=== PATIENT | female | born 2000 | race Caucasian/White ===

== ENCOUNTER 2020-10-03 14:56 | Emergency (ER) | payer OTHER ==
[~2020-10-03] VITALS: Ht 152.4 cm; Wt 67.2 kg
[2020-10-03 15:45] VITALS: BP 123/72
--- NOTE | 2020-10-03 15:49 | PHYS DOC ---
Past History Past Medical History: No Pertinent History Past Surgical History: No Surgical History Smoking: Non-smoker, Second-hand Alcohol Use: None Drug Use: None Adult General HPI HPI Patient is a 20-year-old female who presents with a chief complaint of headache, body aches and sore throat for day. States she was at the fair last [place] and was feeling well but nobody there was wearing a mask including her and she woke up this morning with her symptoms. Denies any recent travel, traumas, fevers, chest pain, shortness of breath, abdominal pain, nausea, vomiting, dysuria, hematuria or blood in stool. States she like to be tested for Covid and get a work note. Review of Systems Review of Systems Review of systems otherwise unremarkable except noted in HPI Allergies Allergies Allergies Coded Allergies Type Severity Reaction Last Updated Verified No Known Drug Allergies 03/17/13 No Physical Exam Physical Exam Constitutional: Well developed, well nourished, no acute distress, non-toxic appearance. [] HENT: Normocephalic, atraumatic, Eyes: conjunctiva normal, no discharge. [] Neck: Normal range of motion, no tenderness, supple, no stridor. [] Cardiovascular:Heart rate regular rhythm, no murmur [] Lungs & Thorax: Bilateral breath sounds clear to auscultation [] Abdomen: soft, no tenderness, no masses, no pulsatile masses. [] Skin: Warm, dry, no erythema, no rash. [] Extremities: No tenderness, no cyanosis, no clubbing, ROM intact, no edema. [] Neurologic: Alert and oriented X 3, no focal deficits noted. [] Psychologic: Affect normal, judgement normal, mood normal. [] EKG EKG [] Radiology/Procedures Radiology/Procedures [] Heart Score C/O Chest Pain: No Risk Factors: Risk Factors: DM, Current or recent (<one month) smoker, HTN, HLP, family history of CAD, obesity. Risk Scores: Risk Factors: DM, Current or recent (<one month) smoker, HTN, HLP, family history of CAD, obesity. Course & Med Decision Making Course & Med Decision Making Patient is a 20-year-old female who presents with fatigue, headache and sore throat for day Vital signs not concerning. Physical exam noted above. Given Tylenol, ibuprofen and Benadryl as well as cough medicine. Given work note. Covid swab pending. Discussed Covid precautions and quarantine for home and given education. Advised to follow-up in the morning with her primary care physician. Gave return precautions to the ED. Patient grateful, verbalized understanding agree with plan of discharge. Tiffany Disclaimer Tiffany Disclaimer This electronic medical record was generated, in whole or in part, using a voice recognition dictation system. Departure Departure: Impression: Primary Impression: Viral syndrome Disposition: HOME / SELF CARE / HOMELESS Condition: GOOD Referrals: KHARI AMBROSE (PCP) Patient Instructions: Viral Syndrome Additional Instructions: You have been tested for or diagnosed with COVID-19. It is an infection caused by a new type of coronavirus. COVID-19 will cause cold-like or mild flu symptoms in most. It can cause more severe symptoms like problems breathing in some. There is no treatment for COVID-19. The body will clear the infection over time. Self-care will help to ease discomfort. Steps to Take: Self-Care Rest as needed. Healthy habits may help you feel better. Steps include: Choose healthy foods including fruits and vegetables. Drink water throughout the day. Get plenty of sleep each night. If you smoke, try to quit. It may ease breathing. Avoid alcohol. Keep Others Healthy The virus can spread to others. Droplets are released every time you sneeze or cough. The droplets can get into the mouth, nose, or eyes of people near you and lead to infection. To lower the chances of spreading COVID-19 to others: Stay at home until your doctor has said it is safe to leave. If you tested positive this will mean staying isolated until both of the following are true: At least 7 days have passed since the start of illness. You are free of fever for at least 72 hours without the use of medicine. During this time: - Avoid public areas, events, or transportation. Do not return to work or school until your doctor has said it is safe to do so. - Call ahead if you need to go to a medical center. Let them know you may have COVID-19. It will help them guide you where to go. They may also ask you to wear a facemask when you come to the office. - If you call for emergency medical services, let them know you may have COVID- 19. While at home: - Try to avoid close contact with others. Stay about 6 feet away. - If possible, spend most of your time in a separate room from others. - Use a face mask if you will be in close contact with others such as sharing a room or vehicle. - Have someone wipe down common surfaces in the home. Use household wafer production worker every day on areas like doorknobs, counters, or sinks. - Cough or sneeze into a tissue. Throw the tissue away right after use. If a tissue is not available, cough or sneeze into your elbow. - Wash your hands often. Wash them after sneezing or coughing. Use soap and water and wash for at least 20 seconds. Alcohol based hand conduit cleaner can be used if soap and water is not available. - Do not prepare food for others. Avoid sharing personal items like forks, spoons, or toothbrushes. - Avoid close contact with pets while you are sick. There is no evidence of the virus passing to pets. This is a safety step until more is known about this virus. Isolation can be frustrating. Social interaction can help. Keep in touch with friends and family through phone and tech options. You can still interact with others in your home, just keep a safe distance of about 6 feet. Follow-up: Your doctors office will check in with you to see if there are any changes in your health. You may be asked to keep track of symptoms to share with them. They will also let you know when you are clear to be in public again. Problems to Look Out For: Contact your doctor if your recovery is not going as you expect. Get emergency care if you have problems such as: - Trouble breathing - Nonstop chest pain or pressure - Changes in awareness, confusion, or problems waking - Lips or face have bluish color - Worsening of symptoms If you think you have an emergency, call for emergency medical services right away. As taken from [facility] [place] [facility] PLATT MD Oct 03, 2020 15:49
[2020-10-03] MEDS ORDERED: guaiFENesin/CODEINE 100mg/10mg 5 ML LIQUID PO PRN (16:00)
[2020-10-03] MEDS ORDERED: diphenhydrAMINE HCL 25 MG CAPSULE PO ONE (16:00)
[2020-10-03] MEDS ORDERED: ACETAMINOPHEN 500 MG TABLET PO ONE (16:00)
[2020-10-03] MEDS ORDERED: IBUPROFEN 600 MG TABLET. PO ONE (16:00)
== END 2020-10-03 16:05 | disposition home or self-care (01) ==
LOC: ER 14:56
DX: B34.9 Viral infection, unspecified (principal); R51.9 Headache, unspecified; Z20.822 Contact with and (suspected) exposure to COVID-19
CPT/HCPCS: 99284; C9803; Q0163; U0003

== ENCOUNTER 2021-08-01 12:41 | Emergency (ER) | payer OTHER ==
[~2021-08-01] VITALS: Ht 152.4 cm; Wt 65.9 kg
[2021-08-01] MEDS ORDERED: ACETAMINOPHEN 500 MG TABLET PO ONE (13:00)
[2021-08-01] MEDS ORDERED: IBUPROFEN 400 MG TABLET. PO ONE (13:15)
[2021-08-01] MEDS ORDERED: IPRATRPIUM/ALBUTEROL 0.5/2.5MG 3 ML NEBU. ONE (13:20)
--- NOTE | 2021-08-01 13:22 | PHYS DOC ---
Past History Past Medical History: No Pertinent History Past Surgical History: No Surgical History Smoking: Non-smoker, Second-hand Alcohol Use: None Drug Use: None General Adult EDM: Chief Complaint: MULTIPLE COMPLAINTS HPI: HPI: Patient is a 21-year-old female who presents to the emergency department for mul tiple complaints including sore throat, right ear pain that started last night. Patient reports that her kids were sick with similar symptoms. She denies cough, shortness of breath, nausea, vomiting. Review of Systems: Review of Systems: Constitutional: See HPI HENT: See HPI Respiratory: See HPI GI: See HPI Musculoskeletal: Reports body aches Current Medications: Current Meds: Current Medications Medications (Trade) Dose Ordered Sig/Paulette Start Time Stop Time Status Last Admin Dose Admin Acetaminophen (Tylenol) 1,000 mg 1X ONCE 08/01/21 13:00 08/01/21 13:01 DC Ibuprofen (Motrin) 800 mg 1X ONCE 08/01/21 13:15 08/01/21 13:16 DC Allergies: Allergies: Allergies Coded Allergies Type Severity Reaction Last Updated Verified No Known Drug Allergies 03/17/13 No Physical Exam: PE: Constitutional: Well developed, well nourished, no acute distress, non-toxic appearance. [] HENT: Normocephalic, atraumatic, bilateral external ears normal, bilateral tympanic membranes are intact without erythema, 3+ tonsillar enlargement with erythema, no exudate noted on tonsils, uvula midline, no trismus or phonation changes, postnasal drainage noted, oropharynx moist, no oral exudates, nose normal. [] Eyes: PERRL, EOMI, conjunctiva normal, no discharge. [] Neck: Normal range of motion, right posterior cervical chain lymphadenopathy that is tender with palpation, supple, no stridor. [] Cardiovascular:Heart rate regular rhythm, no murmur [] Lungs & Thorax: Bilateral breath sounds clear to auscultation [] Abdomen: Bowel sounds normal, soft, no tenderness, no masses, no pulsatile m asses. [] Skin: Warm, dry, no erythema, no rash. [] Back: No tenderness, normal range of motion Extremities: No tenderness, no cyanosis, no clubbing, ROM intact, no edema. [] Neurologic: Alert and oriented X 3, normal motor function, normal sensory function, no focal deficits noted. [] Psychologic: Affect normal, judgement normal, mood normal. [] Current Patient Data: Labs: Laboratory Tests Test 08/01/21 13:00 08/01/21 13:38 Influenza Type A (Rapid) Negative Influenza Type B (Rapid) Negative SARS-CoV-2 Antigen (Rapid) Negative Group A Streptococcus Rapid Negative Heterophil Agglutinins Negative Current Medications Medications (Trade) Dose Ordered Sig/Paulette Route PRN Reason Start Time Stop Time Status Last Admin Dose Admin Acetaminophen (Tylenol) 1,000 mg 1X ONCE PO 08/01/21 13:00 08/01/21 13:01 DC 08/01/21 13:00 Ibuprofen (Motrin) 800 mg 1X ONCE PO 08/01/21 13:15 08/01/21 13:16 DC 08/01/21 13:15 Albuterol/ Ipratropium (Duoneb) 3 ml STK-MED ONCE .ROUTE 08/01/21 13:20 08/01/21 13:21 DC EKG: EKG: [] Radiology/Procedures: Radiology/Procedures: [] Heart Score: C/O Chest Pain: N/A Risk Factors: Risk Factors: DM, Current or recent (<one month) smoker, HTN, HLP, family history of CAD, obesity. Risk Scores: Score 0 - 3: 2.5% MACE over next 6 weeks - Discharge Home Score 4 - 6: 20.3% MACE over next 6 weeks - Admit for Clinical Observation Score 7 - 10: 72.7% MACE over next 6 weeks - Early Invasive Strategies Course & Med Decision Making: Course & Med Decision Making Pertinent Labs and Imaging studies reviewed. (See chart for details) Patient resents to the emergency department for sore throat and right ear pain started last night. Patient will be tested for strep, mono, influenza and COVID. She denies a cough or shortness of breath. Patient is tachycardic with a heart rate of 118 she does have a fever of 103. Patient was given oral fluids and p.o. challenged. She was given Tylenol and Motrin for her fever. Patient had negative testing in the emergency department. Following treatment in the emergency department patient's temperature has decreased and her heart rate has improved to 107 bpm. Patient Centor score is 4. Patient will be treated for strep pharyngitis with an antibiotic. She also be discharged home with a steroid. Educated on symptomatic treatment. I discussed with patient all findings and diagnostic testing as well as the need to follow-up with PCP for further evaluation and treatment or return to the ER if any new or worsening symptoms. Strict return precautions were also discussed at length. Patient voiced understanding and agreement with the plan. Patient is hemodynamically stable at the time of disposition. Dragon Disclaimer: Dragon Disclaimer: This electronic medical record was generated, in whole or in part, using a voice recognition dictation system. Departure Departure: Impression: Primary Impression: Pharyngitis Qualified Codes: J02.9 - Acute pharyngitis, unspecified Disposition: HOME / SELF CARE / HOMELESS Condition: GOOD Referrals: KHARI AMBROSE (PCP) Patient Instructions: Viral and Bacterial Pharyngitis Additional Instructions: You are seen in the emergency department today for sore throat and ear pain. You are being treated with an antibiotic for strep pharyngitis. Please start and finish the antibiotic completely. You are also being discharged home with a steroid to help with inflammation. Please take Tylenol and ibuprofen for any pain or fevers. Increase your fluids to thin your secretions. You can perform warm salt water gargles. Follow-up with your primary care provider tomorrow regarding your ER visit. Return to the emergency department if you develop worsening of your throat pain/swelling, inability to maintain your secretions or drink fluids, shortness of breath, high fevers refractory to treatment, intractable nausea or vomiting. Scripts Methylprednisolone (MEDROL) 4 Mg Tab.ds.pk 1 PKG PO UD for inflammation, #1 PKG 0 Refills Prov: RUPESH MORIN CREDIT CONTROL ASSISTANT 08/01/21 Amoxicillin (AMOXICILLIN) 500 Mg Capsule 1 CAP PO BID for infection for 10 Days, #20 CAP 0 Refills Prov: RUPESH MORIN CREDIT CONTROL ASSISTANT 08/01/21 RUPESH MORIN CREDIT CONTROL ASSISTANT August 01, 2021 13:22
[2021-08-01 13:36] LABS: INFLUENZA A PATIENT NEGATIVE (NEGATIVE); INFLUENZA B PATIENT NEGATIVE (NEGATIVE)
[2021-08-01 14:22] LABS: MONONUCLEOSIS PATIENT NEGATIVE (NEGATIVE)
[2021-08-01 14:35] VITALS: BP 117/77
[2021-08-01] MEDS ORDERED: METH4TAB2 PO (14:45)
[2021-08-01] MEDS ORDERED: AMOX500C PO (14:45)
== END 2021-08-01 15:25 | disposition home or self-care (01) ==
LOC: ER 12:41
DX: J02.9 Acute pharyngitis, unspecified (principal); H92.01 Otalgia, right ear; Z20.822 Contact with and (suspected) exposure to COVID-19; Z77.22 Contact with and (suspected) exposure to environmental tobacco smoke (acute) (chronic)
CPT/HCPCS: 86308; 87070; 87147; 87428; 87880; 99283